=== PATIENT | female | born 1965 | race Caucasian/White ===

== ENCOUNTER → 2016-11-09 | Outpatient (CLI) | payer BC ==
[2016-11-09 15:09] LABS: Basophils % (A) 0 %; CHCM 32.1; Eosinophils # (A) 0.1 k/uL (0-0.7); Eosinophils % (A) 1 %; HCT 42.6 % (34.0-46.0); HDW 2.38; HGB 13.8 gm/dL (11.4-16.0); Luc # (Auto) 0.15; Luc % (Auto) 2; Lymphocytes # (A) 2.3 k/uL (1.0-4.8); Lymphocytes % (A) 29 %; MCH 27.4 pg (25.0-35.0); MCHC 32.5 g/dL (31.0-37.0); MCV 84.4 fL (80.0-100.0); Monocytes # (A) 0.4 k/uL (0-1.0); Monocytes % (A) 5 %; Neutrophils # (A) 4.8 k/uL (1.3-7.7); Neutrophils % (A) 63 %; RBC 5.05 m/uL (3.80-5.40); WBC 7.7 k/uL (3.8-10.6); WBC (Perox) 7.87
[2016-11-09 15:15] LABS: ALT 31 U/L (9-52); AST 23 U/L (14-36); Alkaline Phosphatase 64 U/L (38-126); Anion Gap 7 mmol/L; Blood Urea Nitrogen 14 mg/dL (7-17); Calcium 9.1 mg/dL (8.4-10.2); Carbon Dioxide 25 mmol/L (22-30); Chloride 107 mmol/L (98-107); Cholesterol 201 mg/dL (<200); Glucose 76 mg/dL (74-99); HDL Cholesterol 74 mg/dL (40-60); Non-African American GFR(MDRD) >60 (>60 ml/min/1.73 sqM); Potassium 3.9 mmol/L (3.5-5.1); Sodium 139 mmol/L (137-145); Total Bilirubin 0.5 mg/dL (0.2-1.3); Total Protein 7.3 g/dL (6.3-8.2); Triglycerides 84 mg/dL (<150)
== END | disposition home or self-care (01) ==
LOC: LABWHC1 14:39
PROVIDERS: ATTEND Family Medicine
DX: Z00.00 Encounter for general adult medical examination without abnormal findings (principal)
CPT/HCPCS: 36415; 80053; 80061; 84439; 84443; 85025

== ENCOUNTER → 2017-11-03 | Outpatient (CLI) | payer BC ==
--- NOTE | 2017-11-04 07:44 | US ---
EXAMINATION TYPE: US pelvis complete transvag DATE OF EXAM: 11/03/2017 COMPARISON: NONE CLINICAL HISTORY: N83.202 OVARIAN CYST. Pt states RLQ pain x many years, recently gotten worse TECHNIQUE: Transvaginal (TV) and Transabdominal (TA) . Transabdominal sonographic images of the pel vis were acquired. Transvaginal sonographic images were medically necessary to better assess the fol lowing anatomy: Entire pelvis Date of LMP: 10/20/2017 EXAM MEASUREMENTS: Uterus: 11.1 x 5.0 x 4.6 cm Endometrial Stripe: 0.7 cm Transabdominal and transvaginal sub-optimal, difficult scan, difficult to penetrate pelvis 1. Uterus: Anteverted Heterogeneous, difficult to penetrate, difficult to evaluate/heterogenous pr obable solid lesion anterior uterus= 3.8 x 3.6 x 3.9 cm, Nabothian cyst in cervix 2. Endometrium: Difficult to visualize 3. Right Ovary: Obscured by overlying bowel gas 4. Left Ovary: Obscured by overlying bowel gas 5. Bilateral Adnexa: wnl 6. Posterior cul-de-sac: wnl IMPRESSION: 1. Probable solitary heterogenous intramural leiomyoma within the anterior uterine myometrium measuri ng 3.8 x 3.6 x 3.9 cm. This is poorly delineated secondary to shadowing. 2. Nonvisualization of the ovaries. No ovarian cyst seen at this time.
== END | disposition home or self-care (01) ==
LOC: RADUSWWP 15:23
PROVIDERS: ATTEND Family Medicine
DX: N83.202 Unspecified ovarian cyst, left side (principal); Z88.5 Allergy status to narcotic agent
CPT/HCPCS: 76830; 76856

== ENCOUNTER → 2017-12-22 | Outpatient (CLI) | payer BC ==
[2017-12-22 17:18] LABS: Basophils % (A) 0 %; Eosinophils # (A) 0.1 k/uL (0-0.7); Eosinophils % (A) 1 %; HCT 40.8 % (34.0-46.0); HGB 13.4 gm/dL (11.4-16.0); Lymphocytes # (A) 1.9 k/uL (1.0-4.8); Lymphocytes % (A) 23 %; MCH 27.9 pg (25.0-35.0); MCHC 32.9 g/dL (31.0-37.0); MCV 84.6 fL (80.0-100.0); Monocytes # (A) 0.3 k/uL (0-1.0); Monocytes % (A) 4 %; Neutrophils # (A) 5.6 k/uL (1.3-7.7); Neutrophils % (A) 70 %; Platelet Count 287 k/uL (150-450); RBC 4.82 m/uL (3.80-5.40); RDW 15.1 % (11.5-15.5)
== END | disposition home or self-care (01) ==
LOC: LABWHC1 16:30
PROVIDERS: ATTEND Obstetrics & Gynecology
DX: Z01.812 Encounter for preprocedural laboratory examination (principal); Z01.818 Encounter for other preprocedural examination
CPT/HCPCS: 36415; 85025; 93005

== ENCOUNTER 2018-01-04 07:14 | Day surgery (SDC) | payer BC ==
[2017-12-29 15:41] VITALS: BMI 33.8
--- NOTE | 2018-01-03 15:53 | P.HPOB ---
History of Present Illness H&P Date: 01/03/18 Chief Complaint: Menorrhagia 52 year old presents for D&C hysteroscopy and endometrial ablation with NovaSure. Review of Systems All systems: negative Constitutional: Denies chills, Denies fever Eyes: denies blurred vision, denies pain Ears, nose, mouth and throat: Denies headache, Denies sore throat Cardiovascular: Denies chest pain, Denies shortness of breath Respiratory: Denies cough Gastrointestinal: Denies abdominal pain, Denies diarrhea, Denies nausea, Denies vomiting Genitourinary: Denies dysuria, Denies hematuria Musculoskeletal: Denies myalgias Integumentary: Denies pruritus, Denies rash Neurological: Denies numbness, Denies weakness Psychiatric: Denies anxiety, Denies depression Endocrine: Denies fatigue, Denies weight change Past Medical History Past Medical History: Osteoarthritis (OA), Rheumatoid Arthritis (RA) Additional Past Medical History / Comment(s): carpel tunnel bilat gets injections, hepatitis ( not sure what type ) at age 10 History of Any Multi-Drug Resistant Organisms: None Reported Past Surgical History: Tubal Ligation Past Anesthesia/Blood Transfusion Reactions: No Reported Reaction Smoking Status: Former smoker - Past Family History Mother Family Medical History: No Reported History Medications and Allergies Home Medications Medication Instructions Recorded Confirmed Type Abatacept [Orencia Clickject] 125 mg SQ WE 12/29/17 12/29/17 History Folic Acid 1 mg PO HS 12/29/17 12/29/17 History Methotrexate Sodium [Methotrexate] 10 mg PO ESTRADA 12/29/17 12/29/17 History Allergies Allergy/AdvReac Type Severity Reaction Status Date / Time acetaminophen Allergy Rash/Hives Verified 12/29/17 15:30 [From Tylenol-Codeine #3] codeine Allergy dizzy and Verified 12/29/17 15:30 [From Tylenol-Codeine #3] passes out Exam Osteopathic Statement: *. No significant issues noted on an osteopathic structural exam other than those noted in the History and Physical/Consult. Heart: RRR Lungs: CTAB Abdomen: soft, nontender Extremeties: neg aleena's Assessment and Plan (1) Menorrhagia Status: Acute Code(s): N92.0 - EXCESSIVE AND FREQUENT MENSTRUATION WITH REGULAR CYCLE SNOMED Code(s): 450847768 Plan: 1. D&C hysteroscopy and endometrial ablation with NovaSure
[~2018-01-04 07:14] MED LIST: DEXAMETHASONE SOD PHOSPHATE 10 MG/ML 1 ML VIAL IV ONE; MIDAZOLAM 2 MG/2 ML VIAL IV PRN; ONDANSETRON 4 MG/2 ML VIAL IVP ONE; Pre Op ABX Message 1 EACH MISC MISCELLANE ONE; SCOPOLAMINE 1.5MG/72HR PATCH TRANSDERM ONE
[2018-01-04] MEDS: LACTATED RINGERS 1,000 ML IV SCH ×2 (07:50→08:27)
[2018-01-04] MEDS ORDERED: LIDOCAINE 1% INJ 10MG/ML (20 ML MDV) ONE (08:29)
[2018-01-04] MEDS ORDERED: fentaNYL (PF) 50 MCG/ML 2 ML AMP ONE (08:29)
[2018-01-04] MEDS ORDERED: MIDAZOLAM 2 MG/2 ML VIAL ONE (08:29)
[2018-01-04] MEDS ORDERED: PROPOFOL 10 MG/ML 20 ML VIAL IV ONE (08:29)
[2018-01-04] MEDS ORDERED: KETOROLAC 30 MG/ML 1 ML VIAL ONE (08:29)
--- NOTE | 2018-01-04 09:02 | P.OP ---
Date of Procedure: 01/04/18 Preoperative Diagnosis: 1. Menorrhagia Postoperative Diagnosis: 1. Menorrhagia Procedure(s) Performed: D&C hysteroscopy, attempted NovaSure Anesthesia: MAC Surgeon: Jessica Parham Estimated Blood Loss (ml): 30 IV fluids (ml): 200 Urine output (ml): 40 Pathology: other (endometrial currettings) Condition: stable Disposition: PACU Operative Findings: cavity length 6.5cm, width 4.6cm, did not pass cavity assessment. perforation found, uterus sounded to 12 cm. Description of Procedure: Patient is taken the operating room where general anesthesia was obtained without difficulty. She was prepped and draped in normal sterile fashion dorsal lithotomy position, legs placed in the Fooooo cane stirrups. Bladder was drained of all urine. Weighted speculum placed in the vagina and the anterior lip the cervix was grasped with serial tooth tenaculum. The uterus sounded to 12 cm and the cervix under 3.5 cm making the cavity length 6.5 cm as is the maximum per NovaSure. The cervix was dilated to #8 Hegar dilator. Hysteroscopy was then performed. Both ostia were visualized and there was a smooth contour of the uterus, though possible small polyp seen. Sharp curet was then gently used to obtain endometrial curettings. The NovaSure was introduced into the uterus with a cavity length of 6.5 cm, width 4.6 cm. cavity assessment was attempted to be passed, and was not. Hysteroscopy was again performed and perforation was found along the right side of the uterus. All instruments removed from the vagina. Patient tolerated the procedure well, sponge and instrument counts were correct 2 and she was taken to recovery in stable condition.
[2018-01-04 09:18] VITALS: TEMP 96.8
[2018-01-04] MEDS: fentaNYL (PF) 50 MCG/ML 2 ML AMP IV PRN ×2 (09:31→09:36)
[2018-01-04 10:02] VITALS: BP 122/80; PULSE 68; RESP 20
== END 2018-01-04 11:22 | disposition home or self-care (01) ==
LOC: OR 07:14
PROVIDERS: ATTEND Obstetrics & Gynecology
DX: N84.0 Polyp of corpus uteri (principal); N92.1 Excessive and frequent menstruation with irregular cycle; M19.90 Unspecified osteoarthritis, unspecified site; M06.9 Rheumatoid arthritis, unspecified; Z79.899 Other long term (current) drug therapy; Z98.51 Tubal ligation status; Z87.891 Personal history of nicotine dependence; Z88.6 Allergy status to analgesic agent; Z88.5 Allergy status to narcotic agent
CPT/HCPCS: 81025; 88305; 58563; J2250; J1100; J2405; J2001; J3010; J1885; J2704

== ENCOUNTER → 2018-02-10 | Outpatient (CLI) | payer BC ==
[2018-02-10 16:29] LABS: Basophils % (A) 0 %; Eosinophils # (A) 0.1 k/uL (0-0.7); Eosinophils % (A) 1 %; HCT 39.1 % (34.0-46.0); HGB 12.7 gm/dL (11.4-16.0); Lymphocytes # (A) 1.8 k/uL (1.0-4.8); Lymphocytes % (A) 26 %; MCH 27.9 pg (25.0-35.0); MCHC 32.5 g/dL (31.0-37.0); MCV 85.6 fL (80.0-100.0); Monocytes # (A) 0.4 k/uL (0-1.0); Monocytes % (A) 6 %; Neutrophils # (A) 4.5 k/uL (1.3-7.7); Neutrophils % (A) 65 %; Platelet Count 259 k/uL (150-450); RBC 4.56 m/uL (3.80-5.40); RDW 15.8 % (11.5-15.5)
[2018-02-10 16:41] LABS: Anion Gap 6 mmol/L; Blood Urea Nitrogen 14 mg/dL (7-17); Carbon Dioxide 25 mmol/L (22-30); Chloride 109 mmol/L (98-107); Glucose 81 mg/dL (74-99); Sodium 140 mmol/L (137-145)
== END | disposition home or self-care (01) ==
LOC: LABPAT 15:38
PROVIDERS: ATTEND Obstetrics & Gynecology
DX: Z01.812 Encounter for preprocedural laboratory examination (principal)
CPT/HCPCS: 36415; 80048; 85025

== ENCOUNTER 2018-02-17 07:54 | Observation (INO) | payer BC ==
[2018-02-11 15:29] VITALS: BMI 33.8
--- NOTE | 2018-02-16 16:54 | P.HPOB ---
History of Present Illness H&P Date: 02/16/18 Chief Complaint: menorrhagia, fibroid uterus 52 year old presents for TLH with da femi and diagnostic cystoscopy. Review of Systems All systems: negative Constitutional: Denies chills, Denies fever Eyes: denies blurred vision, denies pain Ears, nose, mouth and throat: Denies headache, Denies sore throat Cardiovascular: Denies chest pain, Denies shortness of breath Respiratory: Denies cough Gastrointestinal: Denies abdominal pain, Denies diarrhea, Denies nausea, Denies vomiting Genitourinary: Denies dysuria, Denies hematuria Musculoskeletal: Denies myalgias Integumentary: Denies pruritus, Denies rash Neurological: Denies numbness, Denies weakness Psychiatric: Denies anxiety, Denies depression Endocrine: Denies fatigue, Denies weight change Past Medical History Past Medical History: Osteoarthritis (OA), Rheumatoid Arthritis (RA) Additional Past Medical History / Comment(s): fibrous uterus,steroid inject December,hepatitis at age 10 History of Any Multi-Drug Resistant Organisms: None Reported Past Surgical History: Tubal Ligation Additional Past Surgical History / Comment(s): D&C Past Anesthesia/Blood Transfusion Reactions: No Reported Reaction Additional Past Anesthesia/Blood Transfusion Reaction / Comment(s): no hx blood transfusion Past Psychological History: No Psychological Hx Reported Smoking Status: Former smoker Past Alcohol Use History: None Reported Past Drug Use History: None Reported - Past Family History Mother Family Medical History: No Reported History Medications and Allergies Home Medications Medication Instructions Recorded Confirmed Type Abatacept [Orencia Clickject] 125 mg SQ WE 12/29/17 02/11/18 History Folic Acid 1 mg PO HS 12/29/17 02/11/18 History Methotrexate Sodium [Methotrexate] 10 mg PO ESTRADA 12/29/17 02/11/18 History Ibuprofen [Advil] 400 mg PO DAILY PRN 02/11/18 02/11/18 History Allergies Allergy/AdvReac Type Severity Reaction Status Date / Time codeine Allergy dizzy and Verified 02/11/18 15:07 [From Tylenol-Codeine #3] passes out Exam Osteopathic Statement: *. No significant issues noted on an osteopathic structural exam other than those noted in the History and Physical/Consult. Heart: RRR Lungs: CTAB Abdomen: soft, nontender Extremeties: neg aleena's Assessment and Plan (1) Menorrhagia Status: Acute Code(s): N92.0 - EXCESSIVE AND FREQUENT MENSTRUATION WITH REGULAR CYCLE SNOMED Code(s): 218226938 Plan: 1. TLH with da femi and diagnostic cystoscopy
[~2018-02-17 07:54] MED LIST changes: +LIDOCAINE 1% 20 ML VIAL (10MG/ML) FOR IV START INTRADERMA PRN; -Pre Op ABX Message 1 EACH MISC MISCELLANE ONE; +ceFAZolin IN SWFI 2 GM/20 ML SYRINGE IVP ONE
[2018-02-17] MEDS: LACTATED RINGERS 1,000 ML IV SCH ×2 (08:48→08:49)
[2018-02-17] MEDS ORDERED: LIDOCAINE 1% INJ 10MG/ML (20 ML MDV) ONE (10:00)
[2018-02-17] MEDS ORDERED: PROPOFOL 10 MG/ML 20 ML VIAL IV ONE (10:00)
[2018-02-17] MEDS ORDERED: ONDANSETRON 4 MG/2 ML VIAL ONE (10:00)
[2018-02-17] MEDS ORDERED: NEOSTIGMINE 1 MG/ML 10 ML VIAL ONE (10:00)
[2018-02-17] MEDS ORDERED: ROCURONIUM BROMIDE 10 MG/ML 10 ML VIAL IV ONE (10:00)
[2018-02-17] MEDS ORDERED: MIDAZOLAM 2 MG/2 ML VIAL ONE (10:00)
[2018-02-17] MEDS ORDERED: fentaNYL (PF) 50 MCG/ML 2 ML AMP ONE (10:00)
[2018-02-17] MEDS ORDERED: GLYCOPYRROLATE 0.2 MG/ML 2 ML VIAL ONE (10:00)
[2018-02-17] MEDS ORDERED: LIDOCAINE 1% INJ 10MG/ML (20 ML MDV) SQ ONE (10:40)
[2018-02-17] MEDS: HYDROmorphone 0.5 MG/0.5 ML SYRINGE IVP PRN ×4 (12:10→12:44)
[2018-02-17] MEDS ORDERED: KETOROLAC 30 MG/ML 1 ML VIAL IVP ONE (12:38)
--- NOTE | 2018-02-17 12:49 | P.OP ---
Date of Procedure: 02/17/18 Preoperative Diagnosis: 1. Menorrhagia 2. Fibroid uterus Postoperative Diagnosis: Same Procedure(s) Performed: TLH with da Alan, diagnostic cystoscopy Anesthesia: DENISSE Surgeon: Jessica Parham [employer]: Sean Gan Estimated Blood Loss (ml): 50 IV fluids (ml): 900 Urine output (ml): 200 Pathology: other (Uterus and cervix) Condition: stable Disposition: PACU Operative Findings: Fibroid uterus, normal tubes and ovaries Description of Procedure: Patient taken the operating room where general anesthesia was obtained without difficulty. She is prepped and draped in normal sterile fashion dorsal lithotomy position, legs placed in the Eduardo stirrups. Weighted speculum placed in the vagina and the anterior lip the cervix was grasped with single- tooth tenaculum. The uterus sounded to 12 cm and the cervix diameter was 3.5 cm. The appropriate manipulator tip and ring were placed on the Francine manipulator. The Francine manipulator was then placed in the uterus. Ford catheter was also placed. Attention was then turned to the abdomen and gloves were changed. A 5 mm supraumbilical incision was made the scalpel and a 5 mm optical trocar was placed under direct visualization. 10 cm to the right of this and 2 cm down a 5 mm incision was made and 8 mm da Alan port was placed under direct visualization. Same measurements on the opposite side of the patient's abdomen, the 5 mm incision was made and 8 mm da Alan port was placed under direct visualization. In the left upper quadrant a 10 mm incision was made and a 10 mm optical trocar was placed under direct visualization. The 5 mm optical trocar was then replaced with the 8 mm da Alan camera port. The robot was docked on patient's right side. The camera was introduced and then the monopolar curved scissor and [place] bipolar placed under direct visualization. I broke scrub and went to the physician console. The left utero -ovarian ligament was cauterized with the [place] bipolar and cut with monopolar curved scissors. The left round ligament was cauterized with the [place] bipolar and cut with monopolar curved scissors. The posterior leaf of the broad ligament was taken down using the monopolar curved scissors. Anterior leaf of the broad ligament was then taken down using the monopolar curved scissors. The uterine artery was cauterized with the [place] bipolar and cut with monopolar curved scissors. The bladder flap was then started using the monopolar curved scissors. Attention was then turned to the right side of the patient's anatomy and the right utero-ovarian ligament was cauterized with the [place] bipolar and cut with monopolar curved scissors. The right round ligament was cauterized with the [place] bipolar and cut with monopolar curved scissors. Posterior leaf of the broad ligament was taken down using the monopolar curved scissors and the anterior leaf was taken down using the monopolar curved scissors. The uterine artery was cauterized the [place] bipolar cut with monopolar curved scissors. The bladder flap was then finished on this side. Anterior colpotomy was made using the monopolar curved scissors. The rest of the uterus was from the vaginal cuff by following the ring around with the monopolar curved scissors through the uterosacral ligaments back to the anterior portion. Once the uterus and cervix were amputated they were pulled through the vaginal cuff. Hemostasis was assured. The instruments were changed for the Cardier forcep and the ita suture cut. The vaginal cuff was then closed using O stratafix barbed suture in a running fashion. Hemostasis was again assured and the pelvis was irrigated. All instruments were removed from the abdomen and the robot was undocked. I scrubbed back in to perform a cystoscopy. There were jets from both ureteral orifices. The abdominal incisions were closed with 4-0 Vicryl in a subcuticular fashion. Patient tolerated the procedure well, sponge and instrument counts correct 2 and she was taken to recovery room in stable condition condition.
[2018-02-17] MEDS ORDERED: IBUPROFEN 600 MG TAB PO PRN (12:51)
[2018-02-17] MEDS ORDERED: SIMETHICONE 80 MG CHEWABLE PO PRN (12:51)
[2018-02-17] MEDS ORDERED: LACTATED RINGERS 1,000 ML IV SCH (12:51)
[2018-02-17] MEDS ORDERED: HYDROcodone/APAP 5-325MG 1 EACH TAB PO PRN ×2 (12:51)
[2018-02-17] MEDS ORDERED: ONDANSETRON 4 MG/2 ML VIAL IVP PRN (12:51)
[2018-02-17] MEDS: KETOROLAC 30 MG/ML 1 ML VIAL IVP PRN (18:34)
[2018-02-17] MEDS: SENNOSIDES-DOCUSATE SODIUM 1 EACH TAB PO SCH (20:45)
[2018-02-17] MEDS ORDERED: FOLIC ACID 1 MG TAB PO SCH (21:00)
[2018-02-18] MEDS: KETOROLAC 30 MG/ML 1 ML VIAL IVP PRN ×2 (00:08→06:37)
[2018-02-18] MEDS: LACTATED RINGERS 1,000 ML IV SCH (06:37)
[2018-02-18 07:08] LABS: Basophils % (A) 0 %; Eosinophils % (A) 0 %; HCT 38.5 % (34.0-46.0); HGB 12.3 gm/dL (11.4-16.0); Lymphocytes # (A) 2.2 k/uL (1.0-4.8); Lymphocytes % (A) 23 %; MCH 27.8 pg (25.0-35.0); MCV 86.8 fL (80.0-100.0); Mean Platelet Volume 7.2; Monocytes # (A) 0.5 k/uL (0-1.0); Monocytes % (A) 6 %; Neutrophils # (A) 6.7 k/uL (1.3-7.7); Neutrophils % (A) 70 %; Platelet Count 228 k/uL (150-450); RBC 4.43 m/uL (3.80-5.40); RDW 15.6 % (11.5-15.5); WBC 9.5 k/uL (3.8-10.6)
[2018-02-18 08:27] VITALS: BP 101/65; PULSE 70; RESP 18; TEMP 98.2
--- NOTE | 2018-02-18 08:40 | P.DS ---
Providers Date of admission: 02/18/18 01:11 Expected date of discharge: 02/18/18 Attending physician: Jessica Parham Primary care physician: Sukh Alicea - Discharge Diagnosis(es) (1) Menorrhagia Current Visit: No Status: Resolved Hospital Course: Patient underwent total laparoscopic hysterectomy with da Alan. Her postoperative course is uncomplicated. She'll be discharge home postoperative day #1 in stable condition with me in 3 weeks. She denies nausea, vomiting, chest pain, shortness of breath or calf pain. She is ambulating voiding without difficulty and tolerating regular diet. Plan - Discharge Summary New Discharge Prescriptions: New HYDROcodone/APAP 5-325MG [[place] 5-325] 2 each PO Q6HR PRN #24 tab PRN Reason: Pain Ibuprofen [Motrin] 600 mg PO Q6HR PRN #30 tab PRN Reason: Mild Discomfort No Action Folic Acid 1 mg PO HS Abatacept [Orencia Clickject] 125 mg SQ WE Methotrexate Sodium [Methotrexate] 10 mg PO ESTRADA Ibuprofen [Advil] 400 mg PO DAILY PRN PRN Reason: Pain Discharge Medication List Abatacept [Orencia Clickject] 125 mg SQ WE 12/29/17 [History] Folic Acid 1 mg PO HS 12/29/17 [History] Methotrexate Sodium [Methotrexate] 10 mg PO ESTRADA 12/29/17 [History] Ibuprofen [Advil] 400 mg PO DAILY PRN 02/11/18 [History] HYDROcodone/APAP 5-325MG [[place] 5-325] 2 each PO Q6HR PRN #24 tab 02/18/18 [Rx] Ibuprofen [Motrin] 600 mg PO Q6HR PRN #30 tab 02/18/18 [Rx] Follow up Appointment(s)/Referral(s): Jessica Parham DO [Doctor of Osteopathic Medicine] - 3 Weeks Discharge Disposition: HOME SELF-CARE
[2018-02-18] MEDS: SENNOSIDES-DOCUSATE SODIUM 1 EACH TAB PO SCH (11:09)
[2018-02-18] MEDS ORDERED: ACETAMINOPHEN TAB 325 MG TAB PO PRN (12:04)
== END 2018-02-18 11:20 | disposition home or self-care (01) ==
LOC: OR 07:54 → 6PED 11:51 → OR 02-18 01:11 → 6PED 02-18 01:11
PROVIDERS: ADMIT Obstetrics & Gynecology; ATTEND Obstetrics & Gynecology
DX: D25.9 Leiomyoma of uterus, unspecified (principal); N92.0 Excessive and frequent menstruation with regular cycle; N72 Inflammatory disease of cervix uteri; M06.9 Rheumatoid arthritis, unspecified; M19.90 Unspecified osteoarthritis, unspecified site; Z87.891 Personal history of nicotine dependence; Z79.1 Long term (current) use of non-steroidal anti-inflammatories (NSAID); Z79.899 Other long term (current) drug therapy; Z88.5 Allergy status to narcotic agent
CPT/HCPCS: 58570; S2900; 81025; 85025; 86850; 86900; 86901; 88307

== ENCOUNTER → 2018-12-09 | Outpatient (CLI) | payer BC ==
--- NOTE | 2018-12-09 09:19 | US ---
EXAMINATION TYPE: US abdomen APPY DATE OF EXAM: 12/09/2018 COMPARISON: NONE CLINICAL HISTORY: R10.11 RUQ pain. Pt states right side ABD pain 7 images saved of the right lower quadrant fail to showed normal or abnormal-appearing appendix. IMPRESSION: As above.
== END | disposition home or self-care (01) ==
LOC: RADUSWWP 08:19
PROVIDERS: ATTEND Family Medicine
DX: R10.11 Right upper quadrant pain (principal)
CPT/HCPCS: 76705